=== PATIENT | female | born 1985 | race African-American/Black ===

== ENCOUNTER 2017-08-07 01:21 | Emergency (ER) | payer MEDICAID ==
[~2017-08-07] VITALS: Ht 172.7 cm; Wt 75.0 kg
[2017-08-07] MEDS ORDERED: KETOROLAC 30MG/ML VIAL IV STA (02:02)
[2017-08-07 02:30] LABS: CHLORIDE 110 mEq/L (98-107)
[2017-08-07 02:32] LABS: INR 1.1; PROTHROMBIN TIME 11.6 sec (9.4-11.6)
[2017-08-07 02:36] LABS: BASOPHILS % 1.3 % (0.0-2.0); EOSINOPHILS % 0.6 % (0.0-5.0); HEMATOCRIT. 39.4 % (36.0-48.0); HEMOGLOBIN. 13.8 g/dL (12.0-16.0); LYMPHOCYTES % 50.2 % (20.0-50.0); MEAN CORPUSCULAR HEMOGLOBIN 31.1 pg (28.0-32.0); MEAN CORPUSCULAR VOLUME 88.9 fL (81.0-99.0); MEAN PLATELET VOLUME 8.3 fl (7.4-10.4); MONOCYTES % 10.6 % (2.0-8.0); NEUTROPHILS % 37.3 % (40.0-76.0); PLATELET 347 x1000/uL (130-400); RED BLOOD CELL COUNT 4.43 mill/uL (4.2-5.4); RED CELL DISTRIBUTION WIDTH 13.8 % (11.6-14.6)
[2017-08-07] MEDS ORDERED: ACETAMINOPHEN WITH CODEINE 300/30MG TABLET PO STA (04:45)
[2017-08-07] MEDS ORDERED: IBUPROFEN 600MG TABLET PO ONE (05:15)
[2017-08-07] MEDS ORDERED: ONDANSETRON 4MG ODT PO ONE (06:00)
[2017-08-07 06:30] VITALS: BP 121/74
== END 2017-08-07 06:43 | disposition home or self-care (01) ==
LOC: ER 01:21
DX: R07.9 Chest pain, unspecified (principal); M54.30 Sciatica, unspecified side; F12.10 Cannabis abuse, uncomplicated; Z88.5 Allergy status to narcotic agent
CPT/HCPCS: 36415; 71045; 80053; 81025; 84484; 85025; 85610; 93005; 96374; 99285; J1885; Q0162; Z7610